=== PATIENT | male | born 1980 | race American Indian/Alaskan Native ===

== ENCOUNTER 2019-10-16 10:14 | Emergency (ER) | payer SELFPAY ==
[2019-10-16] MEDS ORDERED: levETIRAcetam 1000 MG/NS 0.75% 1,000 MG/100 ML BAG IV ONE (10:43)
[2019-10-16] MEDS ORDERED: SODIUM CHLORIDE 0.9% 1000 ML 1,000 ML IV ONE (10:43)
--- NOTE | 2019-10-16 10:46 | Emergency Department Report ---
HPI - General Chief Complaint: Seizure Time Seen by Provider: 10/16/19 10:38 - HPI HPI: This is a 38-year-old -[place] male presents to the emergency department via EMS from home with complaint of a seizure this morning. It is unknown whether it was witnessed by his mother or she noticed him to be postictal. Patient does have a known seizure disorder for which he is on 3 or 4 different seizure medications. He cannot currently remember the name of these medications as he says he has "memory problems" over time from his seizures. He last had a seizure last week. At this time the patient is awake, alert, oriented and just complains of feeling fatigued and having some recurrence of some chronic midsternal chest discomfort. He denies any headache, vision change, slurred speech, fever, shortness of breath, lower extremity swelling, nausea, vomiting or diaphoresis. He says he has been to the [facility] in [place] 3 different times for this chest pain but no history of coronary artery disease or MD. No recent travel or sick contacts at home. ED Past Medical Hx - Past Medical History Previous Medical History?: Yes Hx Seizures: Yes - Social History Smoking Status: Unknown if ever smoked ED Review of Systems ROS: Stated complaint: SEIZURES/HIP PAIN Other details as noted in HPI Comment: All other systems reviewed and negative Constitutional: denies: chills, fever Eyes: denies: eye pain, vision change ENT: denies: ear pain, throat pain Respiratory: denies: cough, shortness of breath Cardiovascular: chest pain. denies: palpitations Gastrointestinal: denies: abdominal pain, vomiting Genitourinary: denies: dysuria, discharge Musculoskeletal: denies: back pain, arthralgia Skin: denies: rash, lesions Neurological: other (seizure). denies: headache Physical Exam - Physical Exam Vital Signs: Vital Signs 10/16/19 10:33 Temperature 98.4 F Pulse Rate 69 Respiratory 16 Rate Blood Pressure 126/85 [Right] O2 Sat by Pulse 99 Oximetry Physical Exam: GENERAL: The patient is well-developed well-nourished. HENT: Normocephalic. Atraumatic. Patient has moist mucous membranes. EYES: Extraocular motions are intact. No nystagmus. NECK: Supple. Trachea is midline. CHEST/LUNGS: Clear to auscultation. There is no respiratory distress noted. HEART/CARDIOVASCULAR: Regular. There is no tachycardia. ABDOMEN: Abdomen is soft, nontender. Patient has normal bowel sounds. SKIN: Skin is warm and dry. NEURO: The patient is awake, alert, and oriented. The patient is cooperative. The patient has no focal neurologic deficits. Normal speech. Cranial nerves II through XII grossly intact. No pronator drift or dysmetria. MUSCULOSKELETAL: There is no tenderness or deformity. There is no limitation range of motion. There is no evidence of acute injury. ED Course Vital Signs 10/16/19 10:33 Temperature 98.4 F Pulse Rate 69 Respiratory 16 Rate Blood Pressure 126/85 [Right] O2 Sat by Pulse 99 Oximetry ED Medical Decision Making - Lab Data Result diagrams: 10/16/19 11:20 10/16/19 11:20 - EKG Data -: EKG Interpreted by Me EKG shows normal: sinus rhythm, axis, intervals, QRS complexes, ST-T waves Rate: normal - EKG Data When compared to previous EKG there are: previous EKG unavailable Interpretation: normal EKG - Medical Decision Making This patient presents to the emergency department after having a seizure prior to presentation. The patient does have a seizure history. On examination the patient does not have any focal, motor or sensory deficits and his cranial nerves are intact. The patient has been awake, alert, oriented since pr esentation to the emergency department. He was given a loading dose of Keppra. Patient mostly complains of feeling fatigued but also complains of some midsternal chest discomfort that appears to be chronic/intermittent. An EKG was done that does not have any morphology consistent with ST elevation MD or any dysrhythmia. Labs have been unremarkable including CBC, metabolic panel, TSH, troponin. The patient's urine drug screen is positive for marijuana but he admits to using marijuana as he feels it helps with his seizure disorder. As the patient does have a history of seizures, and does not have any physical examination findings of any head trauma, and does not have any neurological def icits on examination, I did not feel that advanced CT imaging of the head was necessary at this time. He was reevaluated multiple times over multiple hours and there has been no further seizure-like activity. Patient will be discharged home to follow-up with primary care and neurology and has been given outpatient referrals for both. His contact information is also been sent over to [facility] and someone from their office should be contacting him shortly for close outpatient follow-up as part of our [facility] low risk chest pain protocol. The patient has been instructed to return to the emergency department immediately with any worsening of symptoms or with any acute distress. Critical Care Time: No Critical care attestation.: If time is entered above; I have spent that time in minutes in the direct care of this critically ill patient, excluding procedure time. ED Disposition Clinical Impression: Seizure, Intermittent chest pain Disposition: TO HOME OR SELFCARE Is pt being admited?: No Condition: Stable Instructions: Chest Pain (ED), Recurrent Seizures Adult (ED) Additional Instructions: Please follow-up with a primary care physician and a neurologist regarding your seizures. I am giving you some referrals for local primary care physicians and clinics. I am also giving you a referral for a local neurologist, Dr. Meeks. I am sending your contact information to [facility] [place] and someone should be contacting you from their office for close outpatient follow- up regarding your chest pains. Please take all of your seizure medications as prescribed. Return to the emergency department with any worsening of your symptoms or with any acute distress. Referrals: ALYSIA MEEKS MD [Referring] - 3-5 Days NELLA GORDON MD [Staff Physician] - 3-5 Days [facility] [Provider Group] - 3-5 Days Time of Disposition: 12:46
[2019-10-16 11:21] LABS: Mucus,Urine FEW /HPF
[2019-10-16 11:23] LABS: Bilirubin,Urine NEG (Negative); Blood,Urine SM (Negative); Color,Urine Yellow (Yellow); Protein,Urine <15 mg/dL mg/dL (Negative); Urobilinogen,Urine < 2.0 mg/dL (<2.0)
[2019-10-16 11:26] LABS: Amphetamine Screen,Urine Negative; Benzodiazepines Screen,Urine Negative; Cocaine Screen,Urine Negative; Methadone Screen,Urine Negative; Opiate Screen,Urine Negative
--- NOTE | 2019-10-16 11:32 | XRay Report ---
CHEST 1 VIEW INDICATION / CLINICAL INFORMATION: CP. COMPARISON: None available. FINDINGS: SUPPORT DEVICES: None. HEART / MEDIASTINUM: No significant abnormality. LUNGS / PLEURA: No significant pulmonary or pleural abnormality. No pneumothorax. ADDITIONAL FINDINGS: No significant additional findings. IMPRESSION: No acute pulmonary or pleural abnormality Signer Name: Jah Torres MD FACR Signed: 10/16/2019 11:27 AM Workstation Name: [id number]
[2019-10-16 11:47] LABS: Cannabinoid Screen,Urine Positive
[2019-10-16 12:16] LABS: Basophils % (Auto) 0.5 % (0.0-1.8); Eosinophils # (Auto) 0.3 K/mm3 (0.0-0.4); Eosinophils % (Auto) 4.7 % (0.0-4.3); Hematocrit 42.5 % (35.5-45.6); Lymphocytes # (Auto) 1.2 K/mm3 (1.2-5.4); Lymphocytes % (Auto) 20.5 % (13.4-35.0); Mean Corpuscular HGB Conc 33 % (32-34); Mean Corpuscular Volume 99 fl (84-94); Monocytes # (Auto) 0.9 K/mm3 (0.0-0.8); Monocytes % (Auto) 14.8 % (0.0-7.3); Platelet Count 226 K/mm3 (140-440); Red Blood Count 4.29 M/mm3 (3.65-5.03); Red Cell Distribution Width 14.5 % (13.2-15.2)
[2019-10-16 12:33] LABS: Alanine Aminotransferase 21 units/L (7-56); Albumin 4.1 g/dL (3.9-5); BUN/Creatinine Ratio 10; Blood Urea Nitrogen 13 mg/dL (9-20); Hemolysis Index 34
[2019-10-16 13:54] VITALS: BP 118/84
== END 2019-10-16 13:56 | disposition home or self-care (01) ==
LOC: ED 10:14
DX: G40.909 Epilepsy, unspecified, not intractable, without status epilepticus (principal); R07.89 Other chest pain; Z79.899 Other long term (current) drug therapy; Z88.0 Allergy status to penicillin; Z88.6 Allergy status to analgesic agent
CPT/HCPCS: 36415; 71045; 80053; 80307; 81001; 82550; 84484; 85025; 93005; 96365; 96366; 99285; J1953; J7030; 80320; G0480

== ENCOUNTER 2020-06-18 10:35 | Emergency (ER) | payer SELFPAY ==
[2020-06-18] MEDS ORDERED: SODIUM CHLORIDE 0.9% 1000 ML 1,000 ML IV ONE (12:22)
[2020-06-18] MEDS ORDERED: levETIRAcetam 1000 MG/NS 0.75% 1,000 MG/100 ML BAG IV ONE (12:22)
--- NOTE | 2020-06-18 12:32 | Emergency Department Report ---
HPI - General Chief Complaint: Seizure Time Seen by Provider: 06/18/20 12:19 - HPI HPI: This is a 39-year-old -[place] male presents to the emergency department via EMS from home after having multiple seizures over the past 2 days. The patient does have a seizure history for which he is on 3 of 4 different medications and he is unable to tell me the names of these medications. The patient usually follows up with [facility] for primary care and neurology. I did see this patient here 1 time previously, about 8 months ago, for similar issues with his seizure disorder. At that time the patient also said that he has some chronic memory issues due to his seizures. At the time of my examination he just complains of some mild fatigue and body aches. He is currently oriented to person, place, time. He denies any fever, vision change, slurred speech, numbness or paresthesias, chest pain, shortness of breath. It does not appear that the patient took anything, nor received anything, for his symptoms prior to presentation today. Per EMS it sounds like the patient may have run out of some or all of his seizure medications. ED Past Medical Hx - Past Medical History Hx Seizures: Yes - Social History Smoking Status: Current Every Day Smoker Substance Use Type: Marijuana - Medications Home Medications: Home Medications Medication Instructions Recorded Confirmed Last Taken Type Divalproex Dr [Yoseph Jama] 500 mg PO BID #60 tablet 06/18/20 Unknown Rx Gabapentin 300 mg PO Q8HR #90 capsule 06/18/20 Unknown Rx Zonisamide (Nf) [Zonegran (Nf)] 300 mg PO QHS #90 capsule 06/18/20 Unknown Rx levETIRAcetam [Keppra TAB] 1,000 mg PO BID #60 tab 06/18/20 Unknown Rx ED Review of Systems ROS: Stated complaint: SEIZURES X2DAYS Other details as noted in HPI Comment: All other systems reviewed and negative Constitutional: denies: chills, fever Eyes: denies: eye pain, vision change ENT: denies: ear pain, throat pain Respiratory: denies: cough, shortness of breath Cardiovascular: denies: chest pain, palpitations Gastrointestinal: denies: abdominal pain, vomiting Genitourinary: denies: dysuria, discharge Musculoskeletal: myalgia. denies: joint swelling Skin: denies: rash, lesions Neurological: other (seizures). denies: headache Physical Exam - Physical Exam Vital Signs: Vital Signs 06/18/20 11:40 Temperature 98.4 F Pulse Rate 75 Respiratory 18 Rate Blood Pressure 119/78 O2 Sat by Pulse 99 Oximetry Physical Exam: GENERAL: The patient is well-developed well-nourished. HENT: Normocephalic. Atraumatic. Patient has moist mucous membranes. EYES: Extraocular motions are intact. No nystagmus. NECK: Supple. Trachea is midline. CHEST/LUNGS: Clear to auscultation. There is no respiratory distress noted. HEART/CARDIOVASCULAR: Regular. There is no tachycardia. There is no murmur. ABDOMEN: Abdomen is soft, nontender. Patient has normal bowel sounds. SKIN: Skin is warm and dry. NEURO: The patient is awake, alert, and oriented. The patient is cooperative. The patient has no focal neurologic deficits. Normal speech. Cranial nerves II through XII grossly intact. No facial asymmetry. MUSCULOSKELETAL: There is no tenderness or deformity. There is no limitation range of motion. ED Course Vital Signs 06/18/20 11:40 Temperature 98.4 F Pulse Rate 75 Respiratory 18 Rate Blood Pressure 119/78 O2 Sat by Pulse 99 Oximetry - Reevaluation(s) Reevaluation #1: 06/18/20 13:03 Patient does appear to have a seizure. Lasted for about 1 minute. He was given 1 mg of Ativan and 1 g of Keppra has been started. Due to the recurrent seizures I will obtain a CT scan of the head without contrast. ED Medical Decision Making - Lab Data Result diagrams: 06/18/20 12:59 06/18/20 12:59 Lab Results 06/18/20 06/18/20 06/18/20 Range/Units 12:59 12:59 12:59 WBC 13.3 H (4.5-11.0) K/mm3 RBC 4.23 (3.65-5.03) M/mm3 Hgb 12.9 (11.8-15.2) gm/dl Hct 40.2 (35.5-45.6) % MCV 95 H (84-94) fl MCH 31 (28-32) pg MCHC 32 (32-34) % RDW 15.4 H (13.2-15.2) % Plt Count 353 (140-440) K/mm3 Sodium 135 L (137-145) mmol/L Potassium 3.5 L (3.6-5.0) mmol/L Chloride 97.0 L (98-107) mmol/L Carbon Dioxide 13 L (22-30) mmol/L Anion Gap 29 mmol/L BUN 9 (9-20) mg/dL Creatinine 1.2 (0.8-1.3) mg/dL Estimated GFR > 60 ml/min BUN/Creatinine Ratio 8 % Glucose 110 H (75-100) mg/dL Calcium 9.0 (8.4-10.2) mg/dL Total Bilirubin 0.30 (0.1-1.2) mg/dL AST 23 (5-40) units/L ALT 17 (7-56) units/L Alkaline Phosphatase 120 (35-129) units/L Total Creatine Kinase (55-170) units/L Total Protein 8.4 H (6.3-8.2) g/dL Albumin 3.7 L (3.9-5) g/dL Albumin/Globulin Ratio 0.8 % Phenytoin 0.9 L (10.0-20.0) ug/mL Valproic Acid < 2.8 L (50-100) ug/mL Plasma/Serum Alcohol (0-0.07) % 06/18/20 06/18/20 Range/Units 12:59 12:59 WBC (4.5-11.0) K/mm3 RBC (3.65-5.03) M/mm3 Hgb (11.8-15.2) gm/dl Hct (35.5-45.6) % MCV (84-94) fl MCH (28-32) pg MCHC (32-34) % RDW (13.2-15.2) % Plt Count (140-440) K/mm3 Sodium (137-145) mmol/L Potassium (3.6-5.0) mmol/L Chloride (98-107) mmol/L Carbon Dioxide (22-30) mmol/L Anion Gap mmol/L BUN (9-20) mg/dL Creatinine (0.8-1.3) mg/dL Estimated GFR ml/min BUN/Creatinine Ratio % Glucose (75-100) mg/dL Calcium (8.4-10.2) mg/dL Total Bilirubin (0.1-1.2) mg/dL AST (5-40) units/L ALT (7-56) units/L Alkaline Phosphatase (35-129) units/L Total Creatine Kinase 391 H (55-170) units/L Total Protein (6.3-8.2) g/dL Albumin (3.9-5) g/dL Albumin/Globulin Ratio % Phenytoin (10.0-20.0) ug/mL Valproic Acid (50-100) ug/mL Plasma/Serum Alcohol < 0.01 (0-0.07) % - EKG Data -: EKG Interpreted by Ia EKG shows normal: sinus rhythm, axis, intervals, QRS complexes, ST-T waves Rate: normal - EKG Data When compared to previous EKG there are: no significant change Interpretation: normal EKG, unchanged when compared t (10/16/19) - Radiology Data Radiology results: report reviewed CT head/brain wo con INDICATION: recurrent seizures. TECHNIQUE: Routine CT head without contrast. All CT scans at this location are performed using CT dose reduction for ALARA by means of automated exposure control. COMPARISON: None. FINDINGS: Exam is limited due to patient noncompliance according to the medical office technologist. Most of the posterior fossa was not included on the exam. BRAIN / INTRACRANIAL CONTENTS: No acute hemorrhage, mass effect, midline shift, or hydrocephalus. No appreciable acute large territorial or lacunar infarct. No chronic infarct or focal atrophy. Normal brain volume and ventricular/sulcal size for age. ORBITS: No significant abnormality of visualized orbits. SINUSES / MASTOIDS: No significant abnormality of visualized sinuses and mastoid air cells. ADDITIONAL FINDINGS: None. IMPRESSION: 1. Limited exam due to patient noncompliance according to the medical office technologist. Most of the posterior fossa was not visualized. 2. No appreciable abnormality in the visualized portions of the brain. - Medical Decision Making This patient presents to the emergency department after having a few seizures this morning and 2 seizures yesterday. The patient is on 4 different seizure medications and has been out of his medication for the past 3 days. Initially the patient is awake, alert, oriented. He does not have any focal, motor or sensory deficits and his cranial nerves are intact. Around 1 PM, the patient was seen having another seizure. This was prior to the patient receiving any antiepileptic medication. At this time he was given 1 mg of Ativan and loaded with a gram of Keppra. I received his medication list which includes Depakote, gabapentin, Keppra and Zonegran. His Depakote level is subtherapeutic. He has been given a loading dose of 1 g of Depakote extended release. The labs show a very slight elevation in the white blood cell count but this is most likely reactive to the patient's recent seizures and I do not feel it represents any infection or inflammation. CK level is slightly elevated but does not show rhabdomyolysis. As previously mentioned the patient has a subtherapeutic Depakote level. A CT scan of the head without contrast was performed that did not show any hemorrhage, large vessel occlusion, or any other acute process. Vital signs have been reassuring throughout his ED course. It has been close to 3 hours and the patient last had any seizure-like activity. He remains awake, alert, oriented. Patient says that he has primary care and neurology follow-up through [facility]. He will be given a refill of his seizure medications. He will return to the closest emergency department with any further seizure-like activity, with worsening of his symptoms, or with any acute distress. Critical Care Time: No Critical care attestation.: If time is entered above; I have spent that time in minutes in the direct care of this critically ill patient, excluding procedure time. ED Disposition Clinical Impression: Seizures, Noncompliance with medication regimen Disposition: TO HOME OR SELFCARE Is pt being admited?: No Condition: Stable Instructions: Seizure, Adult Additional Instructions: Please follow-up with your primary care physician and neurologist in the next few days. Just in case, I am giving you a referral for a local neurologist, Dr. Meeks. Please take all of your medications as previously prescribed. Due to your seizures, you are unable to drive a car/vehicle or operate any heavy machinery for at least 6 months or until cleared by a neurologist. Please avoid any alcohol, illicit drug use or excessive caffeine. Try to get 8 hours of uninterrupted sleep per night. Return to the emergency department with any worsening of your symptoms, new or concerning symptoms not addressed during this current emergency department visit, or with any acute distress. Prescriptions: Zonisamide (Nf) [Zonegran (Nf)] 300 mg PO QHS #[address] [Depakote Dr] 500 mg PO BID #60 tablet Gabapentin 300 mg PO Q8HR #90 capsule levETIRAcetam [Keppra TAB] 1,000 mg PO BID #60 tab Referrals: PRIMARY CARE, [Primary Care Provider] - 2-3 Days ALYSIA MEEKS MD [Referring] - 2-3 Days Neurologist, Your [Other] - 2-3 Days Time of Disposition: 15:23
[2020-06-18] MEDS ORDERED: LORazepam 2 MG/ML VIAL ONE (12:54)
[2020-06-18] MEDS ORDERED: LORazepam 2 MG TAB ONE (12:54)
[2020-06-18] MEDS ORDERED: LORazepam 2 MG/ML VIAL IV ONE (12:55)
[2020-06-18 13:14] LABS: Hematocrit 40.2 % (35.5-45.6); Hemoglobin 12.9 gm/dl (11.8-15.2); Mean Corpuscular HGB Conc 32 % (32-34); Mean Corpuscular Volume 95 fl (84-94); Platelet Count 353 K/mm3 (140-440); Red Blood Count 4.23 M/mm3 (3.65-5.03); Red Cell Distribution Width 15.4 % (13.2-15.2)
[2020-06-18 13:28] LABS: Alanine Aminotransferase 17 units/L (7-56); Albumin 3.7 g/dL (3.9-5); BUN/Creatinine Ratio 8; Blood Urea Nitrogen 9 mg/dL (9-20); Hemolysis Index 4
--- NOTE | 2020-06-18 14:09 | Cat Scan Report ---
CT head/brain wo con INDICATION: recurrent seizures. TECHNIQUE: Routine CT head without contrast. All CT scans at this location are performed using CT dos e reduction for ALARA by means of automated exposure control. COMPARISON: None. FINDINGS: Exam is limited due to patient noncompliance according to the optometric technologist. Most of the posterior fossa was not included on the exam. BRAIN / INTRACRANIAL CONTENTS: No acute hemorrhage, mass effect, midline shift, or hydrocephalus. No appreciable acute large territorial or lacunar infarct. No chronic infarct or focal atrophy. Normal b rain volume and ventricular/sulcal size for age. ORBITS: No significant abnormality of visualized orbits. SINUSES / MASTOIDS: No significant abnormality of visualized sinuses and mastoid air cells. ADDITIONAL FINDINGS: None. IMPRESSION: 1. Limited exam due to patient noncompliance according to the optometric technologist. Most of the posterior fossa was not visualized. 2. No appreciable abnormality in the visualized portions of the brain. Signer Name: Ezequiel Nieves MD Signed: 06/18/2020 2:05 PM Workstation Name: [id number]
[2020-06-18] MEDS ORDERED: DIVALPROEX ER 500 MG TAB PO ONE (14:28)
[2020-06-18 15:03] LABS: Total Cells Counted 100
[2020-06-18 15:07] LABS: Platelet Estimate Consistent w Auto; RBC Morphology Normal
[2020-06-18 19:09] VITALS: BP 145/90
--- NOTE | 2020-06-22 12:41 | Electrocardiograph Report ---
[facility] Test Date: 2020-06-18 Test Time: 14:47:16 Pat Name: ELIZABETH SALEH Department: Room: Gender: M Remotely Piloted Vehicle Controller: ABIGAIL : 1980 Requested By: PEYMAN METCALF Order Number: [id number] Reading MD: Vladimir Ordaz Measurements Intervals [place] Rate: 82 P: 72 AR: 184 QRS: 96 QRSD: 95 T: 60 QT: 378 QTc: 442 Interpretive Statements Sinus rhythm No previous ECG available for comparison Electronically Signed On 06-22-2020 12:40:36 EDT by Vladimir Ordaz
== END 2020-06-18 15:42 | disposition home or self-care (01) ==
LOC: ED 10:35
DX: G40.909 Epilepsy, unspecified, not intractable, without status epilepticus (principal); F17.200 Nicotine dependence, unspecified, uncomplicated; F12.10 Cannabis abuse, uncomplicated; Z91.14 Patient's other noncompliance with medication regimen; Z79.899 Other long term (current) drug therapy; Z88.0 Allergy status to penicillin; Z88.6 Allergy status to analgesic agent
CPT/HCPCS: 36415; 70450; 80053; 80164; 80185; 82550; 85007; 85025; 93005; 96365; 96375; 99284; J1953; J2060; J7030; 80320; G0480

== ENCOUNTER 2020-06-22 10:13 | Emergency (ER) | payer SELFPAY ==
[2020-06-22] MEDS ORDERED: levETIRAcetam 1000 MG/NS 0.75% 1,000 MG/100 ML BAG IV ONE ×2 (10:37→10:38)
[2020-06-22] MEDS ORDERED: ZONISAMIDE 100 MG PO STA (10:40)
[2020-06-22] MEDS ORDERED: GABAPENTIN 300 MG CAP PO STA (10:40)
--- NOTE | 2020-06-22 10:42 | Emergency Department Report ---
ED General Adult HPI - General Chief complaint: Seizure Stated complaint: SEIZURE PUI?: No Time Seen by Provider: 06/22/20 10:24 Source: patient, EMS (Verbal report received from emergency medical services. EMS documentation not available at time of chart dictation ), RN notes reviewed, old records reviewed Mode of arrival: Stretcher Limitations: Other (Patient somewhat confused) - History of Present Illness Initial comments: The patient was evaluated in the emergency department for symptoms described in the history of present illness. He/she was evaluated in the context of the global COVID-19 pandemic, which necessitated consideration that the patient might be at risk for infection with the virus that causes COVID-19. Institutional protocols and algorithms that pertain to the evaluation of patients at risk for COVID-19 are in a state of rapid change based on information released by regulatory bodies including the CDC and federal and state organizations. These policies and algorithms were followed during the [place]'s care in the emergency department. Please note that these policies, procedures and recommendations changed on a rapid basis. The patient is a 39-year-old gentleman. He is not known to myself previously. He typically follows at [place]. He has a history of seizure disorder, and noncompliance. He is brought to the hospital today by emergency medical services. EMS states that the patient fell down 10 stairs, secondary to having a seizure. They report that the patient's family member contacted 911. The patient himself is awake, complains of right hand pain, and mild headache. He denies weakness and numbness. EMS states the patient had normal vital signs in the field, and was somewhat postictal. EMS placed the patient in a cervical collar and backboard in the field. The patient is awake, follows commands, but still somewhat confused. He therefore does not describe the qualitative nature of his symptoms, exacerbating factors, relieving factors, or aggravating factors EMS stated that the patient complained of back pain in the field. -: Sudden Location: head, back, right, upper extremity (Right hand) Radiation: other Quality: other Consistency: other Worsens with: other Associated Symptoms: other - Related Data Previous Rx's Medication Instructions Recorded Last Taken Type Divalproex Dr [Depakote Dr] 500 mg PO BID #60 tablet 06/18/20 Unknown Rx Gabapentin 300 mg PO Q8HR #90 capsule 06/18/20 Unknown Rx Zonisamide (Nf) [Zonegran (Nf)] 300 mg PO QHS #90 capsule 06/18/20 Unknown Rx levETIRAcetam [Keppra TAB] 1,000 mg PO BID #60 tab 06/18/20 Unknown Rx Allergies Allergy/AdvReac Type Severity Reaction Status Date / Time aspirin Allergy Unknown Verified 10/16/19 10:43 Penicillins Allergy Unknown Verified 10/16/19 10:43 ED Review of Systems ROS: Stated complaint: SEIZURE Other details as noted in HPI ED Past Medical Hx - Past Medical History Previous Medical History?: Yes Hx Seizures: Yes - Surgical History Past Surgical History?: No - Social History Smoking Status: Current Every Day Smoker - Medications Home Medications: Home Medications Medication Instructions Recorded Confirmed Last Taken Type Divalproex Dr [Depakote Dr] 500 mg PO BID #60 tablet 06/18/20 Unknown Rx Gabapentin 300 mg PO Q8HR #90 capsule 06/18/20 Unknown Rx Zonisamide (Nf) [Zonegran (Nf)] 300 mg PO QHS #90 capsule 06/18/20 Unknown Rx levETIRAcetam [Keppra TAB] 1,000 mg PO BID #60 tab 06/18/20 Unknown Rx ED Physical Exam - General Limitations: Other (Patient is awake, alert to name, follows commands.) General appearance: alert, in no apparent distress, anxious - Head Head exam: Present: normocephalic, other (Right forehead abrasion) - Eye Eye exam: Present: normal appearance, PERRL, EOMI, other (Visual acuity intact to finger counting and color perception at a close distance). Absent: nystagmus - ENT ENT exam: Present: normal exam, normal orophraynx, mucous membranes moist, TM's normal bilaterally, normal external ear exam, other (There is no nasal septal hematoma. There is no hemotympanum.) - Neck Neck exam: Present: normal inspection. Absent: tenderness, meningismus - Respiratory Respiratory exam: Present: normal lung sounds bilaterally. Absent: respiratory distress, wheezes, rales, rhonchi, stridor, decreased breath sounds - Cardiovascular Cardiovascular Exam: Present: regular rate, normal rhythm, normal heart sounds. Absent: bradycardia, tachycardia, irregular rhythm, systolic murmur, diastolic murmur, rubs, gallop - GI/Abdominal GI/Abdominal exam: Present: soft. Absent: distended, tenderness, guarding, rebound, rigid, pulsatile mass - Rectal Rectal exam: Present: deferred - Extremities Exam Extremities exam: Present: normal inspection (There is no tenderness on the right thumb, or snuffbox.), full ROM, tenderness (The right second and third digits are tender distally.), other (2+ pulses noted in the bilateral upper and lower extremities. There is no palpable cord. negative Homans sign. Muscular compartments are soft. The pelvis is stable.). Absent: pedal edema, calf tenderness - Back Exam Back exam: Present: normal inspection. Absent: tenderness, CVA tenderness (R), CVA tenderness (L), paraspinal tenderness, vertebral tenderness - Neurological Exam Neurological exam: Present: alert, other (No facial droop. Tongue midline. Extraocular movements intact bilaterally. Facial sensation intact to light touch in V1, V2, V3 distribution bilaterally. 5 and a 5 strength in 4 extremities. Sensation intact to light touch in 4 extremities.) - Psychiatric Psychiatric exam: Present: anxious - Skin Skin exam: Present: warm, dry, intact, normal color. Absent: rash ED Course Vital Signs 06/22/20 10:32 Temperature 98.2 F Pulse Rate 86 Respiratory 15 Rate Blood Pressure 139/74 O2 Sat by Pulse 99 Oximetry - Reevaluation(s) Reevaluation #1: 06/22/20 11:48 Differential diagnosis, including but limited to: Seizure, noncompliance, closed head injury, intracranial injury, cervical spine injury, electrolyte derangement, elevated CK Right hand injury Assessment and plan: 39-year-old gentleman status post seizure as per EMS, status post fall down approximately 10 stairs as per EMS, arrives on a cervical collar and backboard, somewhat confused, but awake, alert to name, following commands, and protecting airway. Backboard is cleared. The patient has no spinal tenderness or step-offs. Given confusion and closed head injury, maintain cervical spine precautions. Obtain CT scan of the brain and cervical spine. Obtain x-ray of the chest and pelvis, and right hand. Load patient with his AED medications. Obtain appropriate laboratory studies and EKG. Obtain urinalysis to screen for hematuria. Right hand x-ray reviewed and appreciated. Patient has no thumb tenderness. He can follow-up with an outpatient primary care doctor for this incidental finding. 06/22/20 13:54 CT scan of the brain, cervical spine negative for acute findings. CT scan of the facial bones demonstrates complex facial fractures, and orbital emphysema. I have contacted [facility], and discussed the case with their trauma surgeon, Anne. We have specifically discussed the patient's history, physical, pertinent laboratory studies and imaging findings. Transfer is recommended for services not available at this facility, such as ophthalmology and trauma. I have discussed this plan of care and recommendation with the patient, who verbalized understanding, and was amenable to this plan of care. Patient has provided consent for transfer. This patient has an emergent traumatic condition at this time, which cannot be definitively managed at this hospital, as we do not have facial plastics/OMFS/oculoplastics/trauma surgery, or ophthalmology available for consultation. Patient's airway secured, breathing on his own, spontaneously, he is hemodynamically stable, and suitable for transfer at this time for definitive services not available at this facility. ED Medical Decision Making - Lab Data Result diagrams: 06/22/20 11:16 06/22/20 11:16 Vital Signs 06/22/20 10:32 Temperature 98.2 F Pulse Rate 86 Respiratory 15 Rate Blood Pressure 139/74 O2 Sat by Pulse 99 Oximetry Lab Results 06/22/20 Range/Units 11:16 Hgb 13.0 (11.8-15.2) gm/dl Hct 40.0 (35.5-45.6) % - EKG Data -: EKG Interpreted by [facility] EKG shows normal: sinus rhythm Rate: normal - EKG Data 06/22/20 11:51 EKG interpreted at 11: 47 Sinus rhythm, 91 bpm. Rightward axis, QTC 462 ms. Borderline high left ventricular voltage. This is an abnormal EKG. This is not a STEMI. This appears unchanged when compared to prior EKG from May 2020 - Radiology Data Radiology results: report reviewed, image reviewed CHEST 1 VIEW INDICATION: fall seizure back pain. COMPARISON: None FINDINGS: Support devices: None. Heart: Within normal limits. Lungs/Pleura: No acute air space or interstitial disease. Additional findings: None. IMPRESSION: No acute findings. PELVIS 2 VIEWS INDICATION: Fall, seizure, pain. COMPARISON: None. IMPRESSION: No acute osseous or soft tissue abnormality. No significant DJD. Signer Name: Eitan Cruz Jr, MD Signed: 06/22/2020 10:24 AM Workstation Name: [id number] RIGHT HAND 3 VIEW(S) INDICATION / CLINICAL INFORMATION: right hand pain COMPARISON: None available. FINDINGS: BONES / JOINT(S): No acute fracture or subluxation. No periarticular erosions or significant arthritis. SOFT TISSUES: 3 mm linear ossific density medial to the thumb metacarpal phalangeal joint could represent sequela of prior injury, radiopaque foreign body is not completely excluded. ADDITIONAL FINDINGS: None. Signer Name: Sukh Hidalgo MD Signed: 06/22/2020 10:11 AM Workstation Name: [id number] COMPARISON: None FINDINGS: Support devices: None. Heart: Within normal limits. Lungs/Pleura: No acute air space or interstitial disease. Additional findings: None. IMPRESSION: No acute findings. PELVIS 2 VIEWS INDICATION: Fall, seizure, pain. COMPARISON: None. IMPRESSION: No acute osseous or soft tissue abnormality. No significant DJD. Signer Name: Eitan Cruz Jr, MD Signed: 06/22/2020 10:24 AM Workstation Name: [id number] CT CERVICAL SPINE WITHOUT CONTRAST INDICATION: Fall after seizure, injury. TECHNIQUE: Axial imaging performed through the cervical spine without the use of contrast. Sagittal and coronal reconstructed images were also reviewed. All CT scans at this location are performed using CT dose reduction for ALARA by means of automated exposure control. COMPARISON: None FINDINGS: Alignment: Spinal alignment is normal. Bones: There is no acute osseous abnormality. Mild discogenic DJD is identified at C3-4, C4-5, C5-6 and C6-7. The facet joints are unremarkable. Soft tissues: No acute or significant incidental soft tissue abnormality. IMPRESSION: Mild multilevel cervical spondylosis as described. No evidence for acute injury. Signer Name: Eitan Cruz Jr, MD Signed: 06/22/2020 10:43 AM Workstation Name: [id number] CT head/brain wo con INDICATION: Seizure. TECHNIQUE: Routine CT head without contrast. All CT scans at this location are performed using CT dose reduction for ALARA by means of automated exposure control. COMPARISON: None. FINDINGS: BRAIN / INTRACRANIAL CONTENTS: No acute hemorrhage, mass effect, midline shift, or hydrocephalus. No appreciable acute large territorial or lacunar infarct. No chronic infarct or focal atrophy. Normal brain volume and ventricular/sulcal size for age. ORBITS: No significant abnormality of visualized orbits. SINUSES / MASTOIDS: Moderate mucosal thickening in the maxillary sinuses bilaterally. There also appears to be an acute comminuted fracture of the right maxillary sinus wall which is incompletely visualized. There is also a mildly displaced fracture of the right zygoma arch. ADDITIONAL FINDINGS: None. IMPRESSION: 1. No acute intracranial abnormality. 2. Likely right ZMC type fracture. Dedicated maxillofacial CT recommended for complete evaluation. Signer Name: Ezequiel Nieves MD Signed: 06/22/2020 10:41 AM Workstation Name: [id number] CT FACIAL BONES WITHOUT CONTRAST INDICATION : facial fracture. TECHNIQUE: Ax ial imaging performed through the face with reconstructed images also reviewed. Sagittal and coronal reformatted images. All CT scans at this location are performed using CT dose reduction for ALARA by means of automated exposure control. COMPARISON: None FINDINGS: Multiple right facial fractures are identified. Minimally displaced and nondisplaced fracture lines are identified involving the right zygoma, right posterior lateral maxillary sinus wall, right anterior maxillary sinus wall, right inferior orbital wall and right lateral orbital wall. This is consistent with a tripod fracture. The remaining facial bones are intact. There is moderate blood in the right maxillary sinus. Moderate mucosal thickening is noted in the ethmoid air cells and left maxillary sinus. The orbital contents appear intact although entrapment of the right inferior rectus muscle cannot be excluded. The visualized brain parenchyma is unremarkable. The visualized upper cervical spine is intact with mild multilevel degenerative changes. There is severe right facial soft tissue swelling. IMPRESSION: Multiple right facial fractures as described. Signer Name: Eitan Cruz Jr, MD Signed: 06/22/2020 12:10 PM Workstation Name: [id number] Critical Care Time: Yes Critical care time in (mins) excluding proc time.: 35 Critical care attestation.: If time is entered above; I have spent that time in minutes in the direct care of this critically ill patient, excluding procedure time. ED Disposition Clinical Impression: Seizures, Noncompliance with medication regimen, Right hand pain, Hypokalemia, Elevated CK Closed head injury Qualifiers: Encounter type: initial encounter Qualified Code(s): S09.90XA - Unspecified injury of head, initial encounter Fall Qualifiers: Encounter type: initial encounter Qualified Code(s): W19.XXXA - Unspecified fall, initial encounter Multiple facial fractures Qualifiers: Encounter type: initial encounter Fracture type: open Qualified Code(s): S02.92XB - Unspecified fracture of facial bones, initial encounter for open fracture Disposition: DC/TX-02 SHRT-TRM GEN HOSP IP Is pt being admited?: No Does the pt Need Aspirin: No Condition: Serious Additional Instructions: Please make certain to take your seizure medications as prescribed. Noncompliance with seizure medications may result in breakthrough seizure, which can cause , disability, paralysis, loss of quality of life. Do not drive or operate motor vehicles for the next 6 months. Follow-up with your primary care doctor or neurologist within the next 5 to 7 days for repeat checkup and evaluation. Patient will likely have increased pain and soreness over the next few days. Rest, ice, compression, elevation of affected body parts, avoid heavy lifting, patient may alternate llao-[id number]-vuaqdhz ibuprofen and mgkg-mcj-ruhzibe acetaminophen as needed for physical pain. Patient had x-rays today which showed no obvious acute fracture or dislocation, but right hand x-ray suggested possible chronic appearing foreign body near the right thumb. Please follow-up with your primary care doctor within the recommended timeframe, and have a primary care doctor contact medical records department to follow-up on nonemergent incidental abnormal findings. Please return to the emergency room right away with new pain, worsened pain, migration of pain, projectile vomiting, change in mental status, confusion, inability to tolerate liquid feeds, new, worsened or different symptoms not present on the initial emergency room evaluation. Referrals: PRIMARY CARE, [Primary Care Provider] - 3-5 Days
[2020-06-22] MEDS ORDERED: TETANUS,DIPH,PERTUSS(ACELL) VACCINE 0.5 ML SYRINGE IM ONE (10:56)
--- NOTE | 2020-06-22 11:16 | XRay Report ---
RIGHT HAND 3 VIEW(S) INDICATION / CLINICAL INFORMATION: right hand pain COMPARISON: None available. FINDINGS: BONES / JOINT(S): No acute fracture or subluxation. No periarticular erosions or significant arthriti s. SOFT TISSUES: 3 mm linear ossific density medial to the thumb metacarpal phalangeal joint could repre sent sequela of prior injury, radiopaque foreign body is not completely excluded. ADDITIONAL FINDINGS: None. Signer Name: Sukh Hidalgo MD Signed: 06/22/2020 11:11 AM Workstation Name: [id number]
--- NOTE | 2020-06-22 11:28 | XRay Report ---
CHEST 1 VIEW INDICATION: fall seizure back pain. COMPARISON: None FINDINGS: Support devices: None. Heart: Within normal limits. Lungs/Pleura: No acute air space or interstitial disease. Additional findings: None. IMPRESSION: No acute findings. PELVIS 2 VIEWS INDICATION: Fall, seizure, pain. COMPARISON: None. IMPRESSION: No acute osseous or soft tissue abnormality. No significant DJD. Signer Name: Eitan Cruz Jr, MD Signed: 06/22/2020 11:24 AM Workstation Name: [id number]
--- NOTE | 2020-06-22 11:45 | Cat Scan Report ---
CT head/brain wo con INDICATION: Seizure. TECHNIQUE: Routine CT head without contrast. All CT scans at this location are performed using CT dos e reduction for ALARA by means of automated exposure control. COMPARISON: None. FINDINGS: BRAIN / INTRACRANIAL CONTENTS: No acute hemorrhage, mass effect, midline shift, or hydrocephalus. No appreciable acute large territorial or lacunar infarct. No chronic infarct or focal atrophy. Normal b rain volume and ventricular/sulcal size for age. ORBITS: No significant abnormality of visualized orbits. SINUSES / MASTOIDS: Moderate mucosal thickening in the maxillary sinuses bilaterally. There also appe ars to be an acute comminuted fracture of the right maxillary sinus wall which is incompletely visual ized. There is also a mildly displaced fracture of the right zygoma arch. ADDITIONAL FINDINGS: None. IMPRESSION: 1. No acute intracranial abnormality. 2. Likely right ZMC type fracture. Dedicated maxillofacial CT recommended for complete evaluation. Signer Name: Ezequiel Nieves MD Signed: 06/22/2020 11:41 AM Workstation Name: [id number]
--- NOTE | 2020-06-22 11:47 | Cat Scan Report ---
CT CERVICAL SPINE WITHOUT CONTRAST INDICATION: Fall after seizure, injury. TECHNIQUE: Axial imaging performed through the cervical spine without the use of contrast. Sagittal and coronal reconstructed images were also reviewed. All CT scans at this location are performed us ing CT dose reduction for ALARA by means of automated exposure control. COMPARISON: None FINDINGS: Alignment: Spinal alignment is normal. Bones: There is no acute osseous abnormality. Mild discogenic DJD is identified at C3-4, C4-5, C5-6 and C6-7. The facet joints are unremarkable. Soft tissues: No acute or significant incidental soft tissue abnormality. IMPRESSION: Mild multilevel cervical spondylosis as described. No evidence for acute injury. Signer Name: Eitan Cruz Jr, MD Signed: 06/22/2020 11:43 AM Workstation Name: [id number]
[2020-06-22] MEDS ORDERED: fentaNYL 100 MCG/2 ML INJ IV ONE (12:08)
[2020-06-22 12:21] LABS: Alanine Aminotransferase 53 units/L (7-56); Albumin 3.8 g/dL (3.9-5); BUN/Creatinine Ratio 8; Blood Urea Nitrogen 11 mg/dL (9-20); Calcium 9.2 mg/dL (8.4-10.2); Hemolysis Index 34
[2020-06-22] MEDS ORDERED: VALPROATE SODIUM 500 MG in SODIUM CHLORIDE 0.9% 100 ML IV ONE (12:30)
[2020-06-22] MEDS ORDERED: POTASSIUM CHLORIDE ER 20 MEQ TAB PO ONE (12:42)
--- NOTE | 2020-06-22 13:15 | Cat Scan Report ---
CT FACIAL BONES WITHOUT CONTRAST INDICATION : facial fracture. TECHNIQUE: Axial imaging performed through the face with reconstructed images also reviewed. Sagitta l and coronal reformatted images. All CT scans at this location are performed using CT dose reduction for ALARA by means of automated exposure control. COMPARISON: None FINDINGS: Multiple right facial fractures are identified. Minimally displaced and nondisplaced fract ure lines are identified involving the right zygoma, right posterior lateral maxillary sinus wall, ri ght anterior maxillary sinus wall, right inferior orbital wall and right lateral orbital wall. This i s consistent with a tripod fracture. The remaining facial bones are intact. There is moderate blood i n the right maxillary sinus. Moderate mucosal thickening is noted in the ethmoid air cells and left m axillary sinus. The orbital contents appear intact although entrapment of the right inferior rectus m uscle cannot be excluded. The visualized brain parenchyma is unremarkable. The visualized upper cervi clem spine is intact with mild multilevel degenerative changes. There is severe right facial soft tiss ue swelling. IMPRESSION: Multiple right facial fractures as described. Signer Name: Eitan Cruz Jr, MD Signed: 06/22/2020 1:10 PM Workstation Name: [id number]
[2020-06-22] MEDS ORDERED: HYDROmorphone 1 MG/1 ML INJ IV ONE (13:35)
[2020-06-22] MEDS ORDERED: LACTATED RINGERS 1,000 ML IV ONE (13:56)
[2020-06-22] MEDS ORDERED: CLINDAMYCIN 600 MG/50 mL 600 MG/50 ML BAG IV ONE (13:56)
[2020-06-22 15:55] VITALS: BP 125/80
--- NOTE | 2020-06-24 17:24 | Electrocardiograph Report ---
[facility] Test Date: 2020-06-22 Test Time: 11:47:25 Pat Name: ELIZABETH SALEH Department: Room: Gender: M Inbound Customer Service Representative: JON : 1980 Requested By: ROSE MARIE ZAPATA Order Number: [id number] Reading MD: Kiran Ayoub Measurements Intervals [place] Rate: 91 P: 93 MS: 168 QRS: 105 QRSD: 100 T: 59 QT: 375 QTc: 462 Interpretive Statements Sinus rhythm Left atrial enlargement Compared to ECG 06/18/2020 14:47:16 No significant change noted. Electronically Signed On 06-24-2020 17:23:52 EDT by Kiran Ayoub
== END 2020-06-22 19:00 | disposition short-term general hospital (02) ==
LOC: ED 10:13
DX: S02.92XA Unspecified fracture of facial bones, initial encounter for closed fracture (principal); G40.909 Epilepsy, unspecified, not intractable, without status epilepticus; R74.9 Abnormal serum enzyme level, unspecified; E87.6 Hypokalemia; Z91.14 Patient's other noncompliance with medication regimen; J45.909 Unspecified asthma, uncomplicated; F17.200 Nicotine dependence, unspecified, uncomplicated; Z79.899 Other long term (current) drug therapy; W18.30XA Fall on same level, unspecified, initial encounter; Y93.89 Activity, other specified; Y92.89 Other specified places as the place of occurrence of the external cause; Y99.8 Other external cause status
CPT/HCPCS: 36415; 70450; 70486; 71045; 72125; 72170; 73130; 80053; 80164; 82550; 83735; 85014; 85018; 85049; 90471; 90715; 93005; 96365; 96366; 96367; 96375; 99291; J1953; 80320; G0480

== ENCOUNTER 2021-01-02 09:30 | Emergency (ER) | payer SELFPAY ==
[2021-01-02 10:24] LABS: Basophils # (Auto) 0.1 K/mm3 (0.0-0.1); Basophils % (Auto) 1.2 % (0.0-1.8); Eosinophils # (Auto) 0.4 K/mm3 (0.0-0.4); Eosinophils % (Auto) 6.2 % (0.0-4.3); Hematocrit 39.6 % (35.5-45.6); Hemoglobin 13.1 gm/dl (11.8-15.2); Lymphocytes # (Auto) 1.7 K/mm3 (1.2-5.4); Lymphocytes % (Auto) 30.3 % (13.4-35.0); Mean Corpuscular HGB Conc 33 % (32-34); Mean Corpuscular Volume 93 fl (84-94); Monocytes # (Auto) 0.5 K/mm3 (0.0-0.8); Monocytes % (Auto) 9.5 % (0.0-7.3); Platelet Count 257 K/mm3 (140-440); Red Blood Count 4.28 M/mm3 (3.65-5.03); Red Cell Distribution Width 14.8 % (13.2-15.2)
[2021-01-02 10:51] LABS: BUN/Creatinine Ratio 8; Blood Urea Nitrogen 8 mg/dL (9-20); Calcium 9.2 mg/dL (8.4-10.2); Hemolysis Index 8
--- NOTE | 2021-01-02 10:52 | Emergency Department Report ---
ED Seizure HPI - General Chief Complaint: Seizure Stated Complaint: SEIZURE Time Seen by Provider: 01/02/21 10:14 Source: family, EMS Mode of arrival: Stretcher Limitations: No Limitations - History of Present Illness Initial Comments: 40-year-old male with a past medical history of seizures presents to the hospital with complaint of seizure prior to arrival. Patient had a seizure while in his sleep witnessed by his family member. EMS reports family members witnessed 2 seizures while in his bed. Patient states he typically has seizures in his sleep. patient is compliant with his "6-7" seizure medications with last dose at 5 AM. Patient complains of moderate generalized body aches. Denies tongue laceration/biting or urinary incontinence. Patient states he is seen at [facility] but does not see a neurologist on a regular basis. Last seizure was 3 to 4 days ago. Patient's current med list confirmed with his mother. Keppra 1000 mg 2 tabs twice daily Vimpat 150 mg twice daily Nayzilam 5 mg 2 squirts in nostril after seizure Patient apparently is out of the following seizure medications Zonismide 100 mg 3 caps nightly Gabapentin 300 mg 3 times daily Apparently Depakote was recently discontinued - Related Data Home Medications Medication Instructions Recorded Confirmed Last Taken Lacosamide [Vimpat] BID 01/02/21 01/02/21 05:00 Nayzilam 5 01/02/21 01/02/21 05:00 Previous Rx's Medication Instructions Recorded Last Taken Type levETIRAcetam [Keppra TAB] 1,000 mg PO BID #60 tab 06/18/20 01/02/21 05:00 Rx Gabapentin 300 mg PO Q8HR #90 capsule 01/02/21 Unknown Rx Zonisamide (Nf) [Zonegran (Nf)] 300 mg PO QHS #90 capsule 01/02/21 Unknown Rx Allergies Allergy/AdvReac Type Severity Reaction Status Date / Time aspirin Allergy Unknown Verified 10/16/19 10:43 Penicillins Allergy Unknown Verified 10/16/19 10:43 ED Review of Systems ROS: Stated complaint: SEIZURE Other details as noted in HPI Comment: All other systems reviewed and negative ED Past Medical Hx - Past Medical History Hx Seizures: Yes - Social History Smoking Status: Current Every Day Smoker - Medications Home Medications: Home Medications Medication Instructions Recorded Confirmed Last Taken Type levETIRAcetam [Keppra TAB] 1,000 mg PO BID #60 tab 06/18/20 01/02/21 01/02/21 05:00 Rx Gabapentin 300 mg PO Q8HR #90 capsule 01/02/21 Unknown Rx Lacosamide [Vimpat] BID 01/02/21 01/02/21 05:00 History Nayzilam 5 01/02/21 01/02/21 05:00 History Zonisamide (Nf) [Zonegran (Nf)] 300 mg PO QHS #90 capsule 01/02/21 Unknown Rx ED Physical Exam - General Limitations: No Limitations - Other Other exam information: General: No acute distress Head: Atraumatic Eyes: normal appearance ENT: Moist mucous membranes Neck: Normal appearance, no midline tenderness Chest: Clear to auscultation bilaterally CV: Regular rate and rhythm Abdomen: Soft, normal bowel sounds, nontender, nondistended, no rebound or guarding Back: Normal inspection Extremity: Normal inspection, full range of motion, generalized muscle skeletal pain without gross deformity Neuro: Alert O x 3, no facial asymmetry, speech clear, no gross motor sensory deficit Psych: Appropriate behavior Skin: No rash ED Course Vital Signs 01/02/21 01/02/21 01/02/21 10:02 10:15 10:17 Temperature Pulse Rate 55 L 64 Respiratory 16 12 18 Rate Blood Pressure 123/90 O2 Sat by Pulse 100 100 100 Oximetry 01/02/21 10:29 Temperature 98.7 F Pulse Rate Respiratory Rate Blood Pressure O2 Sat by Pulse Oximetry - Reevaluation(s) Reevaluation #1: 01/02/21 12:42 Patient without further seizure activity. Received p.o. gabapentin. We do not have Zonisamide on formulary here and patient states he has already taken his other a.m. seizure medication. He received IV Ativan to help with seizure prophylaxis until he can restart his baseline seizure medication. A refill of his gabapentin and zonisamide will be provided. Outpatient follow-up with his PMD and neurologist encouraged ED Medical Decision Making - Lab Data Result diagrams: 01/02/21 10:13 01/02/21 10:13 Lab Results 01/02/21 01/02/21 01/02/21 Range/Units 10:13 10:13 10:26 WBC 5.7 (4.5-11.0) K/mm3 RBC 4.28 (3.65-5.03) M/mm3 Hgb 13.1 (11.8-15.2) gm/dl Hct 39.6 (35.5-45.6) % MCV 93 (84-94) fl MCH 31 (28-32) pg MCHC 33 (32-34) % RDW 14.8 (13.2-15.2) % Plt Count 257 (140-440) K/mm3 Lymph % (Auto) 30.3 (13.4-35.0) % [place] % (Auto) 9.5 H (0.0-7.3) % Eos % (Auto) 6.2 H (0.0-4.3) % Baso % (Auto) 1.2 (0.0-1.8) % Lymph # (Auto) 1.7 (1.2-5.4) K/mm3 [place] # (Auto) 0.5 (0.0-0.8) K/mm3 Eos # (Auto) 0.4 (0.0-0.4) K/mm3 Baso # (Auto) 0.1 (0.0-0.1) K/mm3 Seg Neutrophils % 52.8 (40.0-70.0) % Seg Neutrophils # 3.0 (1.8-7.7) K/mm3 Sodium 136 L (137-145) mmol/L Potassium 4.2 (3.6-5.0) mmol/L Chloride 100.3 (98-107) mmol/L Carbon Dioxide 24 (22-30) mmol/L Anion Gap 16 mmol/L BUN 8 L (9-20) mg/dL Creatinine 1.0 (0.8-1.3) mg/dL Estimated GFR > 60 ml/min BUN/Creatinine Ratio 8 % Glucose 94 (75-100) mg/dL POC Glucose 82 (70-105) mg/dL Calcium 9.2 (8.4-10.2) mg/dL Magnesium 2.00 (1.7-2.3) mg/dL Urine Opiates Screen Urine Methadone Screen Ur Barbiturates Screen Ur Phencyclidine Scrn Ur Amphetamines Screen U Benzodiazepines Scrn Urine Cocaine Screen U Marijuana (THC) Screen Drugs of Abuse Note 01/02/21 Range/Units 10:47 WBC (4.5-11.0) K/mm3 RBC (3.65-5.03) M/mm3 Hgb (11.8-15.2) gm/dl Hct (35.5-45.6) % MCV (84-94) fl MCH (28-32) pg MCHC (32-34) % RDW (13.2-15.2) % Plt Count (140-440) K/mm3 Lymph % (Auto) (13.4-35.0) % Wallace % (Auto) (0.0-7.3) % Eos % (Auto) (0.0-4.3) % Baso % (Auto) (0.0-1.8) % Lymph # (Auto) (1.2-5.4) K/mm3 Wallace # (Auto) (0.0-0.8) K/mm3 Eos # (Auto) (0.0-0.4) K/mm3 Baso # (Auto) (0.0-0.1) K/mm3 Seg Neutrophils % (40.0-70.0) % Seg Neutrophils # (1.8-7.7) K/mm3 Sodium (137-145) mmol/L Potassium (3.6-5.0) mmol/L Chloride (98-107) mmol/L Carbon Dioxide (22-30) mmol/L Anion Gap mmol/L BUN (9-20) mg/dL Creatinine (0.8-1.3) mg/dL Estimated GFR ml/min BUN/Creatinine Ratio % Glucose (75-100) mg/dL POC Glucose (70-105) mg/dL Calcium (8.4-10.2) mg/dL Magnesium (1.7-2.3) mg/dL Urine Opiates Screen Negative Urine Methadone Screen Negative Ur Barbiturates Screen Negative Ur Phencyclidine Scrn Negative Ur Amphetamines Screen Negative U Benzodiazepines Scrn Negative Urine Cocaine Screen Negative U Marijuana (THC) Screen Positive Drugs of Abuse Note Disclamer - Medical Decision Making 40-year-old male presents to the hospital status post seizure at baseline mental status pain as generalized body pain. Patient takes several antiepileptic medication has been noncompliant with 2 of them. We do not have zonisamide on formulary therefore patient received gabapentin and Ativan. No further seizure activity during ED stay. Labs unremarkable. UDS positive for marijuana pt given one dose of Noco for generalized body pain. Patient states this has been going on for several months therefore encouraged to follow-up with primary care doctor Critical Care Time: No Critical care attestation.: If time is entered above; I have spent that time in minutes in the direct care of this critically ill patient, excluding procedure time. ED Disposition Clinical Impression: Seizure, Noncompliance with medication regimen, Chronic musculoskeletal pain Disposition: HOME / SELF CARE / HOMELESS Is pt being admited?: No Does the pt Need Aspirin: No Condition: Stable Instructions: Musculoskeletal Pain, Epilepsy, [id number] Additional Instructions: Take the medication as prescribed. Follow-up with your doctor or doctor/clinic provided. Return if symptoms worsen as indicated by your discharge instructions. Prescriptions: Gabapentin 300 mg PO Q8HR #90 capsule Zonisamide (Nf) [Zonegran (Nf)] 300 mg PO QHS #90 capsule Referrals: PRIMARY CARE, [Primary Care Provider] - 3-5 Days your, neurologist [Other] - 3-5 Days Time of Disposition: 12:55
[2021-01-02] MEDS ORDERED: GABAPENTIN 300 MG CAP PO ONE (11:02)
[2021-01-02] MEDS ORDERED: LORazepam 2 MG/ML VIAL IV ONE (11:03)
[2021-01-02 11:27] LABS: Amphetamine Screen,Urine Negative; Benzodiazepines Screen,Urine Negative; Cocaine Screen,Urine Negative; Methadone Screen,Urine Negative; Opiate Screen,Urine Negative
[2021-01-02 11:42] LABS: Cannabinoid Screen,Urine Positive
[2021-01-02] MEDS ORDERED: HYDROcodone/ACETAMINOPHEN 5-325 MG TAB PO ONE (12:51)
[2021-01-02 13:57] VITALS: BP 137/91
--- NOTE | 2021-01-04 11:31 | Electrocardiograph Report ---
[facility] Test Date: 2021-01-02 Test Time: 10:07:42 Pat Name: ELIZABETH SALEH Department: Room: Gender: M Insurance Examining Clerk: YOUSIF : 1980 Requested By: CORBY JEFF Order Number: [id number] Reading MD: Vladimir Ordaz Measurements Intervals [place] Rate: 57 P: 75 CA: 205 QRS: 98 QRSD: 90 T: 71 QT: 410 QTc: 401 Interpretive Statements Sinus rhythm Borderline prolonged CA interval Incomplete right bundle branch block Poor R wave progression Compared to ECG 06/22/2020 11:47:25 No significant change Electronically Signed On 01-04-2021 11:30:46 EST by Vladimir Ordaz
== END 2021-01-02 14:50 | disposition home or self-care (01) ==
LOC: ED 09:30
DX: R56.9 Unspecified convulsions (principal); G89.29 Other chronic pain; M79.18 Myalgia, other site; Z91.14 Patient's other noncompliance with medication regimen
CPT/HCPCS: 36415; 80048; 80307; 82962; 83735; 85025; 93005; 96374; 99284; J2060

== ENCOUNTER 2021-03-05 03:29 | Emergency (ER) | payer SELFPAY ==
[2021-03-05] MEDS ORDERED: levETIRAcetam 1000 MG/NS 0.75% 1,000 MG/100 ML BAG IV ONE (06:11)
[2021-03-05] MEDS ORDERED: CYCLOBENZAPRINE 10 MG TAB PO ONE (06:16)
--- NOTE | 2021-03-05 06:19 | Emergency Department Report ---
HPI - General Chief Complaint: Seizure Time Seen by Provider: 03/05/21 06:11 - [facility] HPI: Room 20 Patient is a 40-year-old male present with a chief complaint of seizures. Patient has a history of seizures and states he believes has been compliant with his Keppra. Patient had a generalized tonic-clonic seizure today. Patient now currently complains of body aches from his seizure ED Past Medical Hx - Past Medical History Previous Medical History?: Yes Hx Seizures: Yes - Surgical History Past Surgical History?: No - Family History Family history: no significant - Social History Smoking Status: Current Every Day Smoker (1/3 pack/day) Substance Use Type: None (Denies illicit drug use) - Medications Home Medications: Home Medications Medication Instructions Recorded Confirmed Last Taken Type Gabapentin 300 mg PO Q8HR #90 capsule 01/02/21 Unknown Rx Lacosamide [Vimpat] BID 01/02/21 01/02/21 05:00 History Nayzilam 5 01/02/21 01/02/21 05:00 History Zonisamide (Nf) [Zonegran (Nf)] 300 mg PO QHS #90 capsule 01/02/21 Unknown Rx levETIRAcetam [Keppra TAB] 1,000 mg PO BID #60 tab 03/05/21 Unknown Rx ED Review of Systems ROS: Stated complaint: SEIZURES Other details as noted in HPI Constitutional: no symptoms reported Eyes: denies: eye pain ENT: denies: throat pain Respiratory: no symptoms reported Cardiovascular: denies: chest pain Endocrine: no symptoms reported Gastrointestinal: denies: abdominal pain Musculoskeletal: myalgia Neurological: denies: headache Physical Exam - Physical Exam Vital Signs: Vital Signs 03/05/21 04:17 Temperature 98 F Pulse Rate 108 H Respiratory 18 Rate Blood Pressure 110/60 O2 Sat by Pulse 100 Oximetry Physical Exam: GENERAL: The patient is well-developed well-nourished male lying on stretcher not appearing to be in acute. [] HEENT: Normocephalic. Atraumatic. Extraocular motions are intact. Patient has moist mucous membranes. NECK: Supple. Trachea midline CHEST/LUNGS: Clear to auscultation. There is no respiratory distress noted. HEART/CARDIOVASCULAR: Regular. There is no tachycardia. There is no gallop rub or murmur. ABDOMEN: Abdomen is soft, nontender. Patient has normal bowel sounds. There is no abdominal distention. SKIN: There is no rash. There is no edema. There is no diaphoresis. NEURO: The patient is awake, alert, and oriented. The patient is cooperative. The patient has no focal neurologic deficits. The patient has normal speech. GCS 15 MUSCULOSKELETAL: There is no evidence of acute injury. ED Course Vital Signs 03/05/21 04:17 Temperature 98 F Pulse Rate 108 H Respiratory 18 Rate Blood Pressure 110/60 O2 Sat by Pulse 100 Oximetry ED Medical Decision Making - Lab Data Result diagrams: 03/05/21 06:43 03/05/21 06:43 Laboratory Tests 03/05/21 03/05/21 06:43 06:43 WBC 8.7 RBC 4.34 Hgb 13.2 Hct 40.3 MCV 93 MCH 30 MCHC 33 RDW 14.8 Plt Count 276 Lymph % (Auto) 13.5 [place] % (Auto) 6.5 Eos % (Auto) 0.2 Baso % (Auto) 0.2 Lymph # (Auto) 1.2 [place] # (Auto) 0.6 Eos # (Auto) 0.0 Baso # (Auto) 0.0 Seg Neutrophils % 79.6 H Seg Neutrophils # 6.9 Sodium 141 Potassium 4.7 Chloride 104.2 Carbon Dioxide 26 Anion Gap 16 BUN 11 Creatinine 1.2 Estimated GFR > 60 BUN/Creatinine Ratio 9 Glucose 103 H Calcium 9.7 Magnesium 2.40 H - Differential Diagnosis Seizure Critical care attestation.: If time is entered above; I have spent that time in minutes in the direct care of this critically ill patient, excluding procedure time. ED Disposition Clinical Impression: Seizure Disposition: 01 HOME / SELF CARE / HOMELESS Is pt being admited?: No Does the pt Need Aspirin: No Condition: Stable Instructions: Epilepsy, [id number] Additional Instructions: Return to the emergency department should you develop worsening symptoms, inability to tolerate food or liquids, high fever or any other concerns Prescriptions: levETIRAcetam [Keppra TAB] 1,000 mg PO BID #60 tab Referrals: PRIMARY CARE, [Primary Care Provider] - 3-5 Days Time of Disposition: 09:27
[2021-03-05] MEDS ORDERED: LORazepam 2 MG/ML VIAL IV ONE (07:52)
[2021-03-05 08:04] LABS: Basophils % (Auto) 0.2 % (0.0-1.8); Eosinophils % (Auto) 0.2 % (0.0-4.3); Hematocrit 40.3 % (35.5-45.6); Hemoglobin 13.2 gm/dl (11.8-15.2); Lymphocytes # (Auto) 1.2 K/mm3 (1.2-5.4); Lymphocytes % (Auto) 13.5 % (13.4-35.0); Mean Corpuscular HGB Conc 33 % (32-34); Mean Corpuscular Volume 93 fl (84-94); Monocytes # (Auto) 0.6 K/mm3 (0.0-0.8); Monocytes % (Auto) 6.5 % (0.0-7.3); Platelet Count 276 K/mm3 (140-440); Red Blood Count 4.34 M/mm3 (3.65-5.03); Red Cell Distribution Width 14.8 % (13.2-15.2)
[2021-03-05 08:23] LABS: BUN/Creatinine Ratio 9; Blood Urea Nitrogen 11 mg/dL (9-20); Calcium 9.7 mg/dL (8.4-10.2); Hemolysis Index 0
[2021-03-05 08:40] VITALS: BP 117/84
== END 2021-03-05 10:19 | disposition home or self-care (01) ==
LOC: ED 03:29
DX: G40.909 Epilepsy, unspecified, not intractable, without status epilepticus (principal); F17.200 Nicotine dependence, unspecified, uncomplicated
CPT/HCPCS: 36415; 80048; 83735; 85025; 96374; 96375; 99284; J1953; J2060